=== PATIENT | female | born 1985 ===

== ENCOUNTER 2017-03-23 21:02 | Emergency (ER) | payer SELFPAY ==
[2017-03-23 22:21] LABS: HCG,QUALITATIVE URINE POSITIVE (NEGATIVE)
[2017-03-23 22:24] LABS: SQUAMOUS EPITHIAL 4 /hpf (0-5); URINE BACTERIA RARE (<OCC); URINE BILIRUBIN NEGATIVE (NEGATIVE); URINE BLOOD NEGATIVE (NEGATIVE); URINE CLARITY Clear (Clear); URINE COLOR Yellow (YELLOW); URINE GLUCOSE (UA) NORMAL (Normal); URINE LEUKOCYTE ESTERASE NEG Leu/uL (Negative); URINE NITRATE NEGATIVE (NEGATIVE); URINE PROTEIN NEGATIVE (NEGATIVE); URINE UROBILINOGEN NORMAL mg/dL (0.2-1.0)
--- NOTE | 2017-03-23 23:24 | US ---
EXAM: US First Trimester, Transabdominal CLINICAL HISTORY: 31 years old, female; Pain; complicated by abdominal or pelvic pain; Left lower quadrant; First trimester; Gestational age or lmp: Unknown lmp; ; Additional info: Llq pain, bleeding. R/O ectopic TECHNIQUE: Real-time transabdominal obstetrical ultrasound of the maternal pelvis and a first trimester with image documentation. COMPARISON: No relevant prior studies available. FINDINGS: Gestation: Single live intrauterine gestation. heart rate of 127 beats per minute. [place]-rump length of 0.69 cm, correlating with gestational age of 6 weeks 4 days. Uterus/cervix: No subchorionic hemorrhage. No cervical dilatation or effacement. Ovaries: RIGHT ovary: Normal. LEFT ovary: Probable 1.7 x 1.8 x 1.4 cm corpus luteal cyst. No adnexal masses. Free fluid: Small free fluid within pelvis. IMPRESSION: 1. Single live intrauterine gestation. 2. Incidental/non-acute findings are described above. EXAM: US , Transvaginal CLINICAL HISTORY: 31 years old, female; Pain; complicated by abdominal or pelvic pain; Left lower quadrant; First trimester; Gestational age or lmp: Unknown lmp; ; Additional info: Llq pain, bleeding. R/O ectopic TECHNIQUE: Real-time transvaginal obstetrical ultrasound of the maternal pelvis and a first trimester with image documentation. Transvaginal imaging was used for better evaluation of the fetus and adnexa. COMPARISON: No relevant prior studies available. FINDINGS: Gestation: Single live intrauterine gestation. heart rate of 127 beats per minute. [place]-rump length of 0.69 cm, correlating with gestational age of 6 weeks 4 days. Uterus/cervix: No subchorionic hemorrhage. No cervical dilatation or effacement. Ovaries: RIGHT ovary: Normal. LEFT ovary: Probable 1.7 x 1.8 x 1.4 cm corpus luteal cyst. No adnexal masses. Free fluid: Small free fluid within pelvis.
[2017-03-23 23:39] LABS: BASO # 0.1 K/uL (0.0-0.2); BASO % 0.6 % (0.0-2.0); EOS % 0.4 % (0.0-4.0); HEMOGLOBIN 13.1 g/dL (11.0-16.0); LYMPH # 1.7 K/uL (1.0-4.3); LYMPH % 19.5 % (20.0-40.0); MEAN CELL VOLUME 91.6 fL (81.0-99.0); MEAN CORPUSCULAR HEMOGLOBIN 32.5 pg (27.0-31.0); MEAN CORPUSCULAR HGB CONC 35.4 g/dL (33.0-37.0); MEAN PLATELET VOLUME 9.3 fL (7.2-11.7); MONO # 0.5 K/uL (0.0-0.8); MONO % 5.6 % (0.0-10.0); NEUT # 6.3 K/uL (1.8-7.0); NEUT % 73.9 % (50.0-75.0); RBC 4.03 Mil/uL (3.80-5.20); RED CELL DISTRIBUTION WIDTH 12.5 % (11.5-14.5); WHITE BLOOD COUNT 8.5 K/uL (4.8-10.8)
[2017-03-23 23:57] LABS: CALCIUM 8.6 mg/dl (8.6-10.4); GFR AFRICAN-AMERICAN > 60; GFR NON-AFRICAN AMERICAN > 60
[2017-03-23 23:58] LABS: ALB/GLOB RATIO 1.1 (1.0-2.1); ALBUMIN 4.5 g/dL (3.5-5.0); ALT/SGPT 42 U/L (9-52); AST/SGOT 62 U/L (14-36); BLOOD UREA NITROGEN 9 mg/dL (7-17)
--- NOTE | 2017-03-24 00:12 | C.PDOC ---
Time Seen by Provider: 03/23/17 21:47 Chief Complaint (Nursing): Abdominal Pain History Per: Patient Onset/Duration Of Symptoms: Days (about 1 week), Intermittent Episodes Current Symptoms Are (Timing): Still Present Severity: Mild Location Of Pain/Discomfort: LLQ Quality Of Discomfort: Unable To Describe, "Pain" Alleviating Factors: None Additional History Per: Prior Records Abnormal Vaginal Bleeding: Yes Last Menstral Period: January 2017 Past Medical History Reviewed: Historical Data, Nursing Documentation, Vital Signs Vital Signs: Last Vital Signs Temp 98.6 F 03/23/17 21:37 Pulse 68 03/23/17 21:37 Resp 18 03/23/17 21:37 BP 125/78 03/23/17 21:37 Pulse Ox 100 03/24/17 00:13 - Medical History PMH: No Chronic Diseases Surgical History: No Surg Hx Family History: States: Unknown Family Hx - Social History Hx Alcohol Use: Yes Hx Substance Use: No - Immunization History Hx Influenza Vaccination: No Review Of Systems Except As Marked, All Systems Reviewed And Found Negative. Constitutional: Negative for: Fever, Weakness Cardiovascular: Negative for: Chest Pain Respiratory: Negative for: Shortness of Breath Gastrointestinal: Negative for: Vomiting, Diarrhea Genitourinary: Positive for: Vaginal Bleeding (spotting yesterday), Pelvic Pain Musculoskeletal: Negative for: Neck Pain Skin: Negative for: Rash Neurological: Negative for: Weakness, Numbness Physical Exam - Physical Exam Appears: Non-toxic, No Acute Distress Skin: Normal Color, Warm, Dry, No Rash Head: Atraumatic, Normacephalic Eye(s): bilateral: Normal Inspection, PERRL, EOMI Oral Mucosa: Moist Neck: Normal ROM, Supple Cardiovascular: Rhythm Regular Respiratory: Normal Breath Sounds, No Accessory Muscle Use Gastrointestinal/Abdominal: Soft, No Tenderness Back: No CVA Tenderness Extremity: Normal ROM Neurological/Psych: Oriented x3, Normal Motor, Normal Sensation ED Course And Treatment - Laboratory Results Result Diagrams: 03/23/17 22:23 03/23/17 23:32 Urine POC: Positive O2 Sat by Pulse Oximetry: 100 Pulse Ox Interpretation: Normal - CT Scan/US Pelvic US Other Rad Studies (CT/US): Read By Radiologist, Radiology Report Reviewed CT/US Interpretation: IMPRESSION: 1. Single live intrauterine gestation. 2. Incidental/non-acute findings are described above. Disposition Counseled Patient/Family Regarding: Studies Performed, Diagnosis, Need For Followup, Rx Given - Disposition Referrals: [facility] [Outside] [facility] [Outside] Disposition: HOME/ ROUTINE Disposition Time: 00:55 Condition: STABLE Additional Instructions: Follow up with an [facility] doctor within 1-2 weeks for further evaluation and treatment. Return to the ER if you develop heavy bleeding, dizziness, worsening of symptoms or if you have any other concerns. Prescriptions: Vit Calc,Iron,Folic [ Vitamins] 1 tab PO DAILY #30 tablet Instructions: Threatened Miscarriage (ED) Print Language: GERMAN - Clinical Impression Clinical Impression: Threatened in first trimester
[2017-03-24 01:04] VITALS: BP 116/77; PULSE 75; RESP 20; TEMP 98.4; O2SAT 99
== END 2017-03-24 01:04 | disposition home or self-care (01) ==
LOC: C.ER 21:02
DX: O20.0 Threatened abortion (principal); Z3A.01 Less than 8 weeks gestation of pregnancy